=== PATIENT | male | born 1950 ===

== ENCOUNTER 2022-07-15 13:30 | Inpatient (IN) | payer OTHER ==
[~2022-07-15] VITALS: Ht 162.6 cm; Wt 75.7 kg
--- NOTE | 2022-07-15 15:26 | NUR ---
PTE VERBALIZA QUE VIENE POR REFERIDO DR CLAY SALDANA POR HERNIA UMBILICAL. PTE SE OBSERVA A/O X4
--- NOTE | 2022-07-15 17:40 | NUR ---
PTE MASCULINO EVALUADO POR .; SE ORIENTA SOBRE ORDENES DE [place] REFIERE COMPRENDER. SE COLECTAN MUESTRAS DE LABORATORIOS Y SE CANALIZA VENA BAJO MEDIDAS ASEPTICAS. SE ADMINISTRAN MEDICMANETOS, BAJO MEDIDAS ASEPTICAS. SE NOTIFICA A RADIOLOGIA PARA XRAY.
[2022-07-16] MEDS ORDERED: ROSUVASTATIN CA20 MG (14:25)
== END 2022-07-18 19:11 | disposition home or self-care (01) | DRG 354 ==
LOC: ER 13:30 → SEC-K 22:44 → SURG 22:44
PROVIDERS: Specialist; ADMIT Internal Medicine; ATTEND Internal Medicine
PROC: BW21YZZ Computerized Tomography (CT Scan) of Abdomen and Pelvis using Other Contrast (ICD-10-PCS; 2022-07-15)
PROC: 0WQF0ZZ Repair Abdominal Wall, Open Approach (ICD-10-PCS; principal; 2022-07-17 07:00)
DX: K42.9 Umbilical hernia without obstruction or gangrene (principal); L03.316 Cellulitis of umbilicus; Z20.822 Contact with and (suspected) exposure to COVID-19

== ENCOUNTER 2024-11-11 13:12 | Outpatient (CLI) | payer OTHER ==
[~2024-11-11 13:12] MED LIST: ROSUVASTATIN CA20 MG
== END 2024-11-11 13:13 | disposition home or self-care (01) ==
LOC: RAD 13:12
PROVIDERS: ATTEND Specialist
DX: J45.998 Other asthma (principal)